=== PATIENT | female | born 1960 | race Caucasian/White ===

== ENCOUNTER 2018-07-03 07:43 | Inpatient (IN) | payer OTHER ==
[~2018-07-03 07:43] MED LIST: LIDOCAINE 2% (SDV) 5 ML INJ; ROCURONIUM 50 MG INJ; SUCCINYLCHOLINE CHLORIDE 100 MG/5 ML SYG IV
[2018-07-03] MEDS ORDERED: DIPHENHYDRAMINE 50 MG INJ IV (09:30)
[2018-07-03] MEDS ORDERED: FENTAnyl 50 MCG/ML VIAL IV ×2 (09:30)
[2018-07-03] MEDS ORDERED: HYDROmorphONE 1 MG/5 ML IV SYRINGE IV ×3 (09:30)
[2018-07-03] MEDS ORDERED: MEPERIDINE 25 MG INJ IV (09:30)
[2018-07-03] MEDS ORDERED: ALBUTEROL 0.083% (NEB) 2.5 MG/3 ML AMP HHN (09:30)
[2018-07-03] MEDS ORDERED: FENTAnyl 50 MCG/ML VIAL (09:32)
[2018-07-03] MEDS ORDERED: MIDAZOLAM 1 MG/ML 2 ML INJ (09:32)
[2018-07-03] MEDS ORDERED: PROPOFOL 20 ML (09:54)
[2018-07-03] MEDS ORDERED: CEFAZOLIN 1 GM INJ (09:54)
[2018-07-03] MEDS ORDERED: ROCURONIUM 50 MG INJ (09:54)
[2018-07-03] MEDS ORDERED: SUCCINYLCHOLINE CHLORIDE 100 MG/5 ML SYG IV (09:54)
[2018-07-03] MEDS: BUPIVACAINE 0.5%/EPI (SDV) 30 ML INJ INJ (10:18)
[2018-07-03] MEDS ORDERED: BUPIVACAINE 0.5%/EPI (SDV) 30 ML INJ (10:47)
[2018-07-03] MEDS ORDERED: NORepinephrine 4 MG INJ (11:08)
[2018-07-03] MEDS ORDERED: SUGAMMADEX SODIUM 200 MG/2 ML VIAL IV (11:08)
[2018-07-03] MEDS: CEFAZOLIN 2 GM/50 ML (PMX) 50 ML IVPB (12:30)
[2018-07-03] MEDS ORDERED: ACETAMINOPHEN 325 MG TAB PO (14:30)
[2018-07-03] MEDS ORDERED: ONDANSETRON 4 MG INJ IV ×2 (14:30→22:30)
[2018-07-03] MEDS ORDERED: IBUPROFEN 600 MG TAB PO (14:30)
[2018-07-03] MEDS: FENTAnyl 50 MCG/ML VIAL IV ×2 (14:50→15:26)
[2018-07-03] MEDS ORDERED: HYDROmorphONE 0.2 MG/ML PCA (14:56)
[2018-07-03] MEDS: HYDROmorphONE 0.2 MG/ML PCA IV (15:02)
[2018-07-03] MEDS: ONDANSETRON 4 MG INJ IV (15:27)
[2018-07-03] MEDS: METOCLOPRAMIDE 10 MG INJ IV (15:35)
[2018-07-03] MEDS: SOD CHLORIDE 0.9% 1,000 ML IV ×2 (16:39→22:07)
[2018-07-03] MEDS: INSULIN ASPART [NOVOLOG] 3 ML PEN SC ×2 (17:00→20:51)
[2018-07-03] MEDS: DOCUSATE SODIUM 100 MG CAP PO (20:51)
[2018-07-03] MEDS: FAMOTIDINE 20 MG INJ IV (20:51)
[2018-07-03] MEDS ORDERED: METOCLOPRAMIDE 10 MG INJ IV (21:00)
[2018-07-04] MEDS: SOD CHLORIDE 0.9% 1,000 ML IV ×3 (00:29→09:20)
[2018-07-04] MEDS: INSULIN ASPART [NOVOLOG] 3 ML PEN SC ×2 (00:54→05:00)
[2018-07-04] MEDS: FAMOTIDINE 20 MG INJ IV ×2 (09:20→20:38)
[2018-07-04] MEDS: DOCUSATE SODIUM 100 MG CAP PO ×3 (09:20→20:37)
[2018-07-04] MEDS ORDERED: HYDROCODONE/APAP (5/325) TAB PO (10:00)
[2018-07-04 10:18] LABS: ADD MAN DIFF? NO
[2018-07-04 10:20] LABS: WHITE BLOOD COUNT 3.8 10^3/ul (4.8-10.8)
[2018-07-04 10:20] LABS: BASOPHILS % 0.3 % (0.0-2.0); EOSINOPHILS % 0.5 % (0.0-7.0); HEMATOCRIT 23.8 % (37.0-47.0); HEMOGLOBIN 8.1 g/dl (12.0-16.0); LYMPHOCYTES # 0.7 10^3/ul (0.8-2.9); LYMPHOCYTES % 17.5 % (15.0-51.0); MEAN CORPUSCULAR HEMOGLOBIN 30.7 pg (29.0-33.0); MEAN CORPUSCULAR VOLUME 90.2 fl (82.0-101.0); MEAN PLATELET VOLUME 8.8 fl (7.4-10.4); MONOCYTE # 0.3 10^3/ul (0.3-0.9); MONOCYTES % 8.5 % (0.0-11.0); NEUTROPHIL # 2.8 10^3/ul (1.6-7.5); NEUTROPHILS % 72.9 % (39.0-77.0); PLATELET COUNT 136 10^3/UL (140-415); RED BLOOD COUNT 2.64 10^6/ul (4.20-5.40); RED CELL DISTRIBUTION WIDTH 13.2 % (11.5-14.5)
[2018-07-04] MEDS: AMLODIPINE 10 MG TAB PO (10:35)
[2018-07-04] MEDS: LOSARTAN 25 MG TAB PO (10:35)
[2018-07-04 10:41] LABS: ANION GAP 6 (5-13); BLOOD UREA NITROGEN 11 mg/dl (7-20); CALCIUM 7.8 mg/dl (8.4-10.2); CARBON DIOXIDE 24 mmol/L (21-31); CHLORIDE 110 mmol/L (97-110); CREATININE 0.79 mg/dl (0.44-1.00); Estimated GFR > 60 mL/min (>60); GLUCOSE 89 mg/dl (70-220); SODIUM 140 mmol/L (135-144)
[2018-07-04 10:44] LABS: POTASSIUM 2.9 mmol/L (3.5-5.1)
[2018-07-04] MEDS: HYDROCODONE/APAP (5/325) TAB PO ×2 (12:40→21:30)
[2018-07-04] MEDS: POTASSIUM CHLORIDE (SR) 20 MEQ TAB PO (12:53)
[2018-07-04] MEDS: POTASSIUM CHLORIDE 100 ML IVPB (14:06)
[2018-07-04 14:43] LABS: MAGNESIUM 1.8 mg/dl (1.7-2.5)
[2018-07-04 18:25] LABS: POTASSIUM 3.7 mmol/L (3.5-5.1)
[2018-07-04] MEDS: MAGNESIUM SULFATE 2 GM/50 ML 50 ML IVPB (18:42)
[2018-07-04] MEDS: HYDROmorphONE 0.5 MG/0.5 ML SYG IV ×2 (18:42→22:54)
[2018-07-05] MEDS: HYDROmorphONE 0.5 MG/0.5 ML SYG IV ×2 (05:32→09:37)
[2018-07-05 07:24] LABS: ADD MAN DIFF? NO
[2018-07-05 07:29] LABS: WHITE BLOOD COUNT 4.2 10^3/ul (4.8-10.8)
[2018-07-05 07:29] LABS: BASOPHILS % 0.2 % (0.0-2.0); EOSINOPHILS # 0.1 10^3/ul (0.0-0.5); EOSINOPHILS % 1.2 % (0.0-7.0); HEMOGLOBIN 8.6 g/dl (12.0-16.0); LYMPHOCYTES # 0.8 10^3/ul (0.8-2.9); LYMPHOCYTES % 18.3 % (15.0-51.0); MEAN CORPUSCULAR HEMOGLOBIN 30.4 pg (29.0-33.0); MEAN CORPUSCULAR HGB CONC 34.4 g/dl (32.0-37.0); MEAN CORPUSCULAR VOLUME 88.3 fl (82.0-101.0); MONOCYTE # 0.3 10^3/ul (0.3-0.9); MONOCYTES % 8.2 % (0.0-11.0); NEUTROPHILS % 71.6 % (39.0-77.0); PLATELET COUNT 138 10^3/UL (140-415); RED BLOOD COUNT 2.83 10^6/ul (4.20-5.40); RED CELL DISTRIBUTION WIDTH 13.1 % (11.5-14.5)
[2018-07-05 07:48] LABS: MAGNESIUM 1.9 mg/dl (1.7-2.5)
[2018-07-05 07:49] LABS: CARBON DIOXIDE 28 mmol/L (21-31); CHLORIDE 103 mmol/L (97-110); POTASSIUM 3.2 mmol/L (3.5-5.1); SODIUM 139 mmol/L (135-144)
[2018-07-05 07:50] LABS: ANION GAP 8 (5-13); BLOOD UREA NITROGEN 9 mg/dl (7-20); CALCIUM 8.8 mg/dl (8.4-10.2); CREATININE 0.99 mg/dl (0.44-1.00); Estimated GFR 58 mL/min (>60); GLUCOSE 97 mg/dl (70-220)
[2018-07-05] MEDS: HYDROCODONE/APAP (5/325) TAB PO (08:07)
[2018-07-05] MEDS: FAMOTIDINE 20 MG INJ IV (08:07)
[2018-07-05] MEDS: LOSARTAN 25 MG TAB PO (08:08)
[2018-07-05] MEDS: DOCUSATE SODIUM 100 MG CAP PO ×2 (08:10→12:36)
[2018-07-05] MEDS: AMLODIPINE 10 MG TAB PO (08:10)
[2018-07-05] MEDS: POTASSIUM CHLORIDE (SR) 20 MEQ TAB PO (09:37)
[2018-07-05] MEDS: MAGNESIUM SULFATE 1 GM/D5W 100 ML IVPB (09:38)
[2018-07-05] MEDS ORDERED: OXYCODONE/ACETAMINOPHEN (5/325) TAB PO (10:30)
[2018-07-05] MEDS: OXYCODONE/ACETAMINOPHEN (5/325) TAB PO (12:14)
== END 2018-07-05 15:10 | disposition home health service (06) | DRG 583 ==
LOC: REC 07:43 → 2NE 16:10
PROVIDERS: Surgery
PROC: 0HTV0ZZ Resection of Bilateral Breast, Open Approach (ICD-10-PCS; principal; 2018-07-03 09:30)
PROC: 07T60ZZ Resection of Left Axillary Lymphatic, Open Approach (ICD-10-PCS; 2018-07-03 09:30)
PROC: 07T50ZZ Resection of Right Axillary Lymphatic, Open Approach (ICD-10-PCS; 2018-07-03 09:30)
DX: C50.912 Malignant neoplasm of unspecified site of left female breast (principal); C50.911 Malignant neoplasm of unspecified site of right female breast; E66.01 Morbid (severe) obesity due to excess calories; Z68.32 Body mass index [BMI] 32.0-32.9, adult; I10 Essential (primary) hypertension; D64.9 Anemia, unspecified
CPT/HCPCS: 80048; 82962; 83735; 84132; 85025; 86850; 86900; 86901; 88307